=== PATIENT | male | born 1990 | race Caucasian/White ===

== ENCOUNTER 2018-01-27 14:13 | Emergency (ER) | payer SELFPAY, OTHER ==
[2018-01-27] MEDS: MUPIROCIN 2% 22 GM OINT TOP (15:37)
[2018-01-27 16:16] LABS: HEPATITIS B SURFACE ANTIGEN NEGATIVE (NEGATIVE)
[2018-01-27 16:33] LABS: HEPATITIS C VIRAL ANTIBODY NEGATIVE (NEGATIVE)
[2018-01-27 16:34] LABS: HEPATITIS B SURFACE ANTIBODY POSITIVE (NEGATIVE)
[2018-01-27 16:37] LABS: HIV 1&2 ANTIBODY NEGATIVE (NEGATIVE)
== END 2018-01-27 17:01 | disposition home or self-care (01) ==
LOC: FTE 14:13
DX: S61.052A Open bite of left thumb without damage to nail, initial encounter (principal); Y04.1XXA Assault by human bite, initial encounter
CPT/HCPCS: 86703; 86706; 86803; 87340; 99284

== ENCOUNTER 2019-01-14 18:58 | Emergency (ER) | payer OTHER ==
[2019-01-15] MEDS: HYDROCODONE/APAP (5/325) TAB PO (01:19)
== END 2019-01-15 02:03 | disposition home or self-care (01) ==
LOC: FTE 18:58
DX: S62.524A Nondisplaced fracture of distal phalanx of right thumb, initial encounter for closed fracture (principal); W20.8XXA Other cause of strike by thrown, projected or falling object, initial encounter; Y92.89 Other specified places as the place of occurrence of the external cause
CPT/HCPCS: 29130; 73140; 99283-25